=== PATIENT | female | born 1955 | race African-American/Black ===

== ENCOUNTER 2022-08-15 04:25 | Day surgery (SDC) | payer BC ==
[2022-08-14 14:10] VITALS: BMI 32.5
[2022-08-15] MEDS ORDERED: BUPIVACAINE HCL/PF 0.5% (5MG/ML) 10 ML VIAL ONE (10:43)
[2022-08-15] MEDS ORDERED: MICROFIBRILLAR COLLAGEN (AVITENE) 1 EACH POWD.PACK TP ONE (11:00)
[2022-08-15] MEDS ORDERED: PROPOFOL 40 ML ONE (11:59)
[2022-08-15] MEDS ORDERED: MIDAZOLAM HCL 2 MG/2 ML SINGLE DOSE VIAL ONE (11:59)
[2022-08-15] MEDS ORDERED: LIDOCAINE HCL/PF 2% SDV 5ML VIAL ONE (12:16)
[2022-08-15] MEDS ORDERED: ONDANSETRON 4 MG/2 ML VIAL ONE ×2 (12:30→18:16)
[2022-08-15] MEDS ORDERED: ceFAZolin SODIUM 1 GM VIAL IVPB ONE (12:30)
[2022-08-15] MEDS ORDERED: DEXAMETHASONE SOD PHOSPHATE 4 MG/1 ML VIAL ONE (12:30)
[2022-08-15] MEDS ORDERED: HYDROmorphone HCl 2 MG/ML VIAL ONE (12:30)
[2022-08-15] MEDS ORDERED: ceFAZolin SODIUM 1 GM VIAL ONE (12:30)
[2022-08-15] MEDS ORDERED: BUPIVACAINE HCL/PF 0.5% (5MG/ML) 10 ML VIAL IJ ONE (12:48)
[2022-08-15] MEDS ORDERED: MICROFIBRILLAR COLLAGEN 1 GM EACH TP ONE (13:30)
[2022-08-15] MEDS ORDERED: LACTATED RINGERS SOLUTION 1,000 ML IV SCH ×2 (13:45→14:00)
[2022-08-15] MEDS ORDERED: PROMETHAZINE HCL 25 MG/1 ML VIAL IVPUSH PRN (14:00)
[2022-08-15] MEDS ORDERED: oxyCODONE HCL 5 MG TABLET PO PRN ×2 (14:00)
[2022-08-15] MEDS ORDERED: ONDANSETRON 4 MG/2 ML VIAL IVPUSH PRN (14:00)
[2022-08-15] MEDS ORDERED: ACETAMINOPHEN 1000 MG/100 ML BAG IVPB ONE (14:01)
[2022-08-15] MEDS ORDERED: ACETAMINOPHEN INJECTION 100 ML IVPB ONE (14:47)
[2022-08-15 17:02] VITALS: RESP 20
[2022-08-15] MEDS ORDERED: oxyCODONE HCL 5 MG TABLET ONE (19:46)
[2022-08-15 20:21] VITALS: BP 132/65; PULSE 80; TEMP 97.3
== END 2022-08-15 20:15 | disposition home or self-care (01) ==
LOC: JASU-SURG 04:25
PROVIDERS: ATTEND Surgery
PROC: 0GTK0ZZ Resection of Thyroid Gland, Open Approach (ICD-10-PCS; principal; 2022-08-15 11:30)
DX: E03.9 Hypothyroidism, unspecified (principal); E04.2 Nontoxic multinodular goiter
CPT/HCPCS: 82962; 88307-TC; 94760